=== PATIENT | male | born 1950 | race Two or more races ===

== ENCOUNTER 2019-04-12 16:13 | Emergency (ER) | payer MEDICARE ==
[~2019-04-12] VITALS: Ht 172.7 cm; Wt 98.9 kg
[2019-04-12] MEDS ORDERED: FLOMAX0.4 MG PO (16:35)
[2019-04-12] MEDS ORDERED: CELEXA10 MG PO (16:35)
== END 2019-04-12 18:02 | disposition home or self-care (01) ==
LOC: ED 16:13
DX: S06.0X0A Concussion without loss of consciousness, initial encounter (principal); Y04.0XXA Assault by unarmed brawl or fight, initial encounter
CPT/HCPCS: 70450; 70486; 72125; 99284-25